=== PATIENT | male | born 1945 | race Caucasian/White ===

== ENCOUNTER 2018-07-25 10:51 | Inpatient (IN) | payer OTHER, MEDICAID ==
[2018-07-25 11:46] LABS: ADD MAN DIFF? NO
[2018-07-25 11:48] LABS: BASOPHILS % 0.3 % (0.0-2.0); EOSINOPHILS # 0.1 10^3/ul (0.0-0.5); EOSINOPHILS % 0.9 % (0.0-7.0); HEMATOCRIT 39.6 % (42.0-52.0); HEMOGLOBIN 13.7 g/dl (14.0-18.0); LYMPHOCYTES # 2.9 10^3/ul (0.8-2.9); LYMPHOCYTES % 44.9 % (15.0-51.0); MEAN CORPUSCULAR HEMOGLOBIN 30.9 pg (29.0-33.0); MEAN CORPUSCULAR HGB CONC 34.6 g/dl (32.0-37.0); MEAN CORPUSCULAR VOLUME 89.4 fl (82.0-101.0); MEAN PLATELET VOLUME 10.2 fl (7.4-10.4); MONOCYTE # 0.6 10^3/ul (0.3-0.9); MONOCYTES % 8.7 % (0.0-11.0); NEUTROPHIL # 2.9 10^3/ul (1.6-7.5); PLATELET COUNT 220 10^3/UL (140-415); RED BLOOD COUNT 4.43 10^6/ul (4.70-6.10); RED CELL DISTRIBUTION WIDTH 12.5 % (11.5-14.5)
[2018-07-25 11:48] LABS: WHITE BLOOD COUNT 6.5 10^3/ul (4.8-10.8)
[2018-07-25 11:56] LABS: ADD UMIC YES; UR ASCORBIC ACID 40 mg/dL (NEGATIVE); UR BILIRUBIN (Dip) NEGATIVE (NEGATIVE); UR BLOOD (Dip) NEGATIVE (NEGATIVE); UR CLARITY CLEAR (CLEAR); UR COLOR YELLOW (YELLOW); UR GLUCOSE (Dip) NEGATIVE (NEGATIVE); UR KETONES (Dip) TRACE mg/dL (NEGATIVE); UR LEUKOCYTE ESTERASE (Dip) NEGATIVE Leu/ul (NEGATIVE); UR MUCUS MODERATE /HPF (NONE SEEN); UR NITRITE (Dip) NEGATIVE (NEGATIVE); UR RBC 3 /HPF (0-5); UR SPECIFIC GRAVITY (Dip) 1.026 (1.003-1.030); UR TOTAL PROTEIN (Dip) 1+ mg/dl (NEGATIVE); UR UROBILINOGEN (Dip) NEGATIVE (NEGATIVE); UR WBC 1 /HPF (0-5)
[2018-07-25] MEDS: SOD CHLORIDE 0.9% 500 ML IV (11:57)
[2018-07-25 12:05] LABS: ALANINE AMINOTRANSFERASE 26 IU/L (13-69); ALBUMIN 3.9 g/dl (3.3-4.9); ALBUMIN/GLOBULIN RATIO 1.21; ALKALINE PHOSPHATASE 68 IU/L (42-121); ANION GAP 12 (8-16); ASPARTATE AMINO TRANSFERASE 25 IU/L (15-46); BILIRUBIN,INDIRECT 0.6 mg/dl (0-1.1); BILIRUBIN,TOTAL 0.6 mg/dl (0.2-1.3); BLOOD UREA NITROGEN 18 mg/dl (7-20); CALCIUM 9.2 mg/dl (8.4-10.2); CARBON DIOXIDE 27 mmol/L (21-31); CHLORIDE 103 mmol/L (97-110); CREATININE 0.73 mg/dl (0.61-1.24); GLUCOSE 154 mg/dl (70-220); SODIUM 138 mmol/L (135-144); TOTAL PROTEIN 7.1 g/dl (6.1-8.1)
[2018-07-25 12:06] LABS: ETHANOL < 10.0 mg/dl
[2018-07-25 12:08] LABS: INR 0.98; PARTIAL THROMBOPLASTIN TIME 27.8 Sec (25.0-35.0); PROTIME 13.1 Sec (11.9-14.9)
[2018-07-25 12:09] LABS: AMPHETAMINE/METHAMPHETAMINE Negative (NEGATIVE); BARBITURATES Negative (NEGATIVE); BENZODIAZEPINES Negative (NEGATIVE); CANNABINOIDS Positive (NEGATIVE); COCAINE Negative (NEGATIVE); OPIATES Negative (NEGATIVE)
[2018-07-25 12:16] LABS: TROPONIN-I < 0.012 ng/ml (0.000-0.120)
[2018-07-25] MEDS ORDERED: ACETAMINOPHEN 325 MG TAB PO ×2 (13:00→14:00)
[2018-07-25] MEDS ORDERED: ONDANSETRON 4 MG INJ IV ×2 (13:00→14:00)
[2018-07-25] MEDS: ASPIRIN 81 MG TAB PO (13:46)
[2018-07-25 14:00] LABS: HEMOGLOBIN A1C 5.8 % (0-5.9)
[2018-07-25] MEDS ORDERED: hydrALAzine 20 MG INJ IV (14:00)
[2018-07-25] MEDS ORDERED: NACL 0.9% 3 ML SYG IV (14:00)
[2018-07-25 14:10] LABS: AMPHETAMINE/METHAMPHETAMINE Negative (NEGATIVE); BARBITURATES Negative (NEGATIVE); BENZODIAZEPINES Negative (NEGATIVE); CANNABINOIDS Positive (NEGATIVE); COCAINE Negative (NEGATIVE); OPIATES Negative (NEGATIVE)
[2018-07-25 14:16] LABS: FREE T4 (FREE THYROXINE) 1.04 ng/dl (0.78-2.44)
[2018-07-25 14:23] LABS: B-TYPE NATRIURETIC PEPTIDE 87 PG/ML (0-125)
[2018-07-25 14:30] LABS: THYROID STIMULATING HORMONE 0.612 MIU/L (0.465-4.680)
[2018-07-25 20:26] LABS: CREATINE KINASE 70 IU/L (23-200)
[2018-07-25 20:38] LABS: CK INDEX 1.1; CK-MB 0.78 ng/ml (0.0-2.4); TROPONIN-I < 0.012 ng/ml (0.000-0.120)
[2018-07-26 01:33] LABS: CREATINE KINASE 64 IU/L (23-200)
[2018-07-26 01:43] LABS: CK INDEX 1.1; CK-MB 0.69 ng/ml (0.0-2.4); TROPONIN-I < 0.012 ng/ml (0.000-0.120)
[2018-07-26 07:40] LABS: ADD MAN DIFF? NO
[2018-07-26 07:45] LABS: WHITE BLOOD COUNT 5.4 10^3/ul (4.8-10.8)
[2018-07-26 07:45] LABS: BASOPHILS % 0.4 % (0.0-2.0); EOSINOPHILS # 0.1 10^3/ul (0.0-0.5); EOSINOPHILS % 1.3 % (0.0-7.0); HEMATOCRIT 40.4 % (42.0-52.0); HEMOGLOBIN 14.1 g/dl (14.0-18.0); LYMPHOCYTES # 2.3 10^3/ul (0.8-2.9); LYMPHOCYTES % 43.7 % (15.0-51.0); MEAN CORPUSCULAR HEMOGLOBIN 31.1 pg (29.0-33.0); MEAN CORPUSCULAR HGB CONC 34.9 g/dl (32.0-37.0); MEAN CORPUSCULAR VOLUME 89.2 fl (82.0-101.0); MEAN PLATELET VOLUME 10.1 fl (7.4-10.4); MONOCYTE # 0.6 10^3/ul (0.3-0.9); MONOCYTES % 10.6 % (0.0-11.0); NEUTROPHIL # 2.4 10^3/ul (1.6-7.5); PLATELET COUNT 210 10^3/UL (140-415); RED BLOOD COUNT 4.53 10^6/ul (4.70-6.10); RED CELL DISTRIBUTION WIDTH 12.8 % (11.5-14.5)
[2018-07-26 08:07] LABS: CHOL/HDL RATIO 3.6 RATIO; CHOLESTEROL 189 mg/dl (100-200); HDL CHOLESTEROL 52 mg/dl (31-75); LDL CHOLESTEROL,CALCULATED 112 mg/dl; TRIGLYCERIDES 127 mg/dl (0-149)
[2018-07-26 08:07] LABS: PHOSPHORUS 3.2 mg/dl (2.5-4.9)
[2018-07-26 08:10] LABS: ALANINE AMINOTRANSFERASE 24 IU/L (13-69); ALBUMIN 3.8 g/dl (3.3-4.9); ALBUMIN/GLOBULIN RATIO 1.15; ALKALINE PHOSPHATASE 60 IU/L (42-121); ANION GAP 8 (8-16); ASPARTATE AMINO TRANSFERASE 23 IU/L (15-46); BILIRUBIN,INDIRECT 0.8 mg/dl (0-1.1); BILIRUBIN,TOTAL 0.8 mg/dl (0.2-1.3); BLOOD UREA NITROGEN 14 mg/dl (7-20); CARBON DIOXIDE 29 mmol/L (21-31); CHLORIDE 107 mmol/L (97-110); CREATININE 0.62 mg/dl (0.61-1.24); GLUCOSE 96 mg/dl (70-220); POTASSIUM 4.1 mmol/L (3.5-5.1); SODIUM 140 mmol/L (135-144); TOTAL PROTEIN 7.1 g/dl (6.1-8.1)
[2018-07-26] MEDS: ASPIRIN 81 MG TAB PO (08:40)
[2018-07-26] MEDS: ENOXAPARIN 40 MG/0.4 ML SYG SC (08:41)
[2018-07-26] MEDS: HYDROCODONE/APAP (5/325) TAB PO (11:03)
== END 2018-07-26 14:45 | disposition home or self-care (01) | DRG 72 ==
LOC: E/R 10:51 → 2NE 12:45
DX: G93.40 Encephalopathy, unspecified (principal); I10 Essential (primary) hypertension; R73.03 Prediabetes; R42 Dizziness and giddiness; R41.0 Disorientation, unspecified; Z79.82 Long term (current) use of aspirin
CPT/HCPCS: 36415; 70450; 70551; 71045; 80053; 80061; 80307; 81001; 82550; 82553; 82962; 83036; 83735; 83880; 84100; 84439; 84443; 84484; 85025; 85610; 85730; 92610; 93005; 93306; 93880; 97162; 97166; 99285-25